=== PATIENT | male | born 1950 | race Caucasian/White ===

== ENCOUNTER 2019-09-28 16:42 | Emergency (ER) | payer OTHER, MEDICAID ==
[~2019-09-28] VITALS: Ht 180.3 cm; Wt 75.7 kg
[2019-09-28 16:54] VITALS: BP 203/112
--- NOTE | 2019-09-28 17:01 | NUR ---
PT WAITING TO BE SEEN BY ISABELLA
--- NOTE | 2019-09-28 17:27 | NUR ---
Patient discharged with v/s stable. Written and verbal after care instructions given and explained. Patient verbalized understanding. AMBULATED WITH POLICE. All questions addressed prior to discharge. Advised to follow up with PMD.
[2019-09-28 17:28] VITALS: BP 198/91
== END 2019-09-28 17:28 ==
LOC: MED 16:42
DX: I10 Essential (primary) hypertension (principal); Z02.89 Encounter for other administrative examinations
CPT/HCPCS: 99283